=== PATIENT | male | born 1995 | race Caucasian/White ===

== ENCOUNTER 2018-07-03 13:22 | Emergency (ER) | payer SELFPAY ==
[~2018-07-03] VITALS: Ht 180.3 cm; Wt 114.5 kg
[2018-07-03 13:31] VITALS: BP 139/78; TEMP 98.8
[2018-07-03] MEDS ORDERED: NORCO 325 MG-51 TAB PO (15:53)
[2018-07-03 15:56] VITALS: PULSE 69
== END 2018-07-03 15:57 | disposition home or self-care (01) ==
LOC: COL.ER 13:22
DX: S62.306A Unspecified fracture of fifth metacarpal bone, right hand, initial encounter for closed fracture (principal); F17.210 Nicotine dependence, cigarettes, uncomplicated; X58.XXXA Exposure to other specified factors, initial encounter
CPT/HCPCS: Q4021

== ENCOUNTER 2018-07-20 10:07 | Day surgery (SDC) | payer SELFPAY ==
[~2018-07-20] VITALS: Ht 182.9 cm; Wt 105.1 kg
[~2018-07-20 10:07] MED LIST: NORCO 325 MG-51 TAB PO
[2018-07-20 10:32] VITALS: BP 147/78; PULSE 72; TEMP 98
[2018-07-20 12:39] VITALS: BP 104/40; PULSE 65
[2018-07-20 12:54] VITALS: BP 102/44; PULSE 56
[2018-07-20 13:09] VITALS: BP 103/45; PULSE 66
[2018-07-20 13:24] VITALS: BP 95/45; PULSE 60
[2018-07-20] MEDS ORDERED: NORCO 325 MG-7.1 TAB PO (13:29)
[2018-07-20 13:39] VITALS: BP 119/41; PULSE 61
== END 2018-07-20 13:45 | disposition home or self-care (01) ==
LOC: SDCO 10:07
DX: S62.326A Displaced fracture of shaft of fifth metacarpal bone, right hand, initial encounter for closed fracture (principal); F17.210 Nicotine dependence, cigarettes, uncomplicated
CPT/HCPCS: J1885; J2250; J2405; J2704; J2795; J3010; J7120